=== PATIENT | male | born 1995 | race Caucasian/White ===

== ENCOUNTER 2016-11-16 06:16 | Day surgery (SDC) | payer OTHER ==
[2016-10-21 14:07] VITALS: BMI 22.6
[2016-11-16] MEDS ORDERED: ROPIVACAINE HCL 0.5% 30ML VIAL ONE (09:41)
[2016-11-16] MEDS ORDERED: MIDAZOLAM HCL 2 MG/2 ML SINGLE DOSE VIAL ONE ×2 (09:42)
[2016-11-16] MEDS ORDERED: PROPOFOL 20 ML ONE ×2 (10:54)
[2016-11-16] MEDS ORDERED: ceFAZolin SODIUM 1 GM VIAL ONE ×2 (11:09→14:21)
[2016-11-16] MEDS ORDERED: ceFAZolin SODIUM 1 GM VIAL IVPB ONE (11:10)
[2016-11-16] MEDS ORDERED: DEXAMETHASONE SOD PHOSPHATE 4 MG/1 ML VIAL ONE (11:12)
--- NOTE | 2016-11-16 12:31 | HP ---
[facility]ellite [facility] - Chief Complaint Chief Complaint: right knee pain/instability - Past Medical History Allergies/Adverse Reactions: Allergies Allergy/AdvReac Type Severity Reaction Status Date / Time No Known Drug Allergies Allergy Verified 11/16/16 08:45 pollen extracts Allergy Verified 11/16/16 08:45 - Current Medications Current Medications: Home Medications Medication Instructions Recorded Oxycodone HCl/Acetaminophen 1 - 2 tab PO Q6H #40 tab MDD 8 11/16/16 [Percocet 5-325 mg Tablet -] Satellite Physical Exam - Physical Examination Vital Signs: Vital Signs Period Temp Pulse Resp BP Sys/Blackmon Pulse Ox Last 24 Hr 97.5 F 64 20 120/73 99 General Appearance: Well Nourished, Well Developed, Alert & Oriented x3 ENT: Clear Lung: Normal air movement Heart: Regular rate & rhythm Extremities: Other (right knee- + swelling, + ttp, + lizeth, + ant draw, + pivot, nvi MRI + acl rupture) Neurological: Intact, Alert, Oriented Satellite Impression/Plan - Impression/Plan Impression: right knee internal derangement Operative Procedure: right knee arthroscopy with ACL reconstruction using btb autograft Date to be Performed: 11/16/16
--- NOTE | 2016-11-16 12:32 | OP ---
Operative Note - Note: Operative Date: 11/16/16 ([facility]) Pre-Operative Diagnosis: right knee acl rupture Operation: right knee arthroscopy with ACL reconstruction using BTB autograft Post-Operative Diagnosis: Same as Pre-op Surgeon: Pravin Victoria Manager Process Excellence: Rohit Wahl) Anesthesiologist/NURSE PRACTITIONER [employer]ICIANS ASSISTANT: Karie Polo Anesthesia: General, Local Specimens Removed: shavings Estimated Blood Loss (mls): 5 (tourniquet) Operative Report Dictated: Yes
[2016-11-16] MEDS ORDERED: MEPERIDINE HCL CARPU-JECT 25 MG/1 ML DISP.SYRIN ONE (12:35)
--- NOTE | 2016-11-16 12:37 | SPEC ---
DATE OF OPERATION: 11/16/2016 PREOPERATIVE DIAGNOSIS: Right anterior cruciate ligament tear. POSTOPERATIVE DIAGNOSIS: Right anterior cruciate ligament tear. PROCEDURE: Right anterior cruciate ligament reconstruction with bone patellar bone autograft harvesting. SURGICAL ATTENDING: Pravin Victoria MD SURGICAL TECHNICIAN: Rohit Wahl MD FIG CAPRIFIER: LOLIS Hunter ANESTHESIA: LMA and regional. CLOSURE: Arthrex metallic interference screw fixation for graft, 0 Vicryl for tendon, paratenon is 2-0 Vicryl, subcutaneous is 2-0 Vicryl, and 3-0 Monocryl subcuticular with skin for skin glue. ESTIMATED BLOOD LOSS: Negligible. TOURNIQUET TIME: Less than an hour. COMPLICATIONS: None. CONDITION: To recovery room in stable condition. DESCRIPTION OF PROCEDURE: The patient was taken to the Operating Room on November 16, 2016. Adductor canal block as well as general anesthesia was administered by the anesthesiologist. IV Kefzol was given prophylactically prior to the case. A well-padded pneumatic tourniquet was placed on the right proximal thigh. The right lower extremity was prepped and draped in the usual sterile fashion. The leg was exsanguinated with an Esmarch bandage and the tourniquet was inflated to 275 mmHg. A 6.0 cm longitudinal incision centered over the patellar tendon was incised down to the level of the patellar tendon through the paratenon. Flaps were made below the paratenon from the mid-patella to tibial tubercle, and medially and laterally to expose the entire patellar tendon. The central 10 mm were harvested using a 10 mm double blade, 10 x 25 mm bone plugs were harvested at its ends using micro-oscillating saw. Two drill holes were placed through each plug, and through these drill holes No 2 Fiberwire traction sutures were applied. The graft was measured and contoured to fit snugly through a 10 mm sizer, and was placed on the back table on a sponge until needed later in the procedure. A rent in the patellar tendon was closed using No. 1 Vicryl interrupted suture. An L was made in the periosteum 1-cm medial to the tibial tubercle for later tibial tunnel placement. Next, the arthroscopic part of the procedure was performed. A superolateral portal was made using a No. 15 blade followed by a blunt trocar. The medial and lateral infrapatellars were made through the previously-made incision using a No. 15 blade followed by a blunt trocar. The scope was placed in the lateral infrapatellar portal and up into the suprapatellar pouch. The pouch was visualized to be clean. The medial and lateral gutters were visualized to be clean. The undersurface of the patella and trochlea were visualized to be intact. With valgus stress on the knee the medial compartment was entered. The medial meniscus was visualized and probed, and found to be intact. The medial femoral condyle was run and found to be intact, as was the medial tibial plateau. In the figure-four position the lateral compartment was entered. The lateral meniscus was visualized and probed, and found to be intact. The lateral femoral condyle was run and found to be intact, as was the lateral tibial plateau. At 90 degrees the ACL was visualized to be completely torn with a large stump anteriorly. This was debrided using the shaver. Next, a notchplasty was performed using a katty and ArthroCare device until the appropriate width and height of the notch was obtained, and the insertion site of the femoral tunnel was clearly seen from anteriorly. All particulate debris was removed using the shaver. Using a 10 mm retro-drill, a tunnel was drilled from the anterior, medial and proximal tibia into the knee just anterior to the PCL. All bone fragments and soft tissue around the tunnel were debrided using the shaver. With the knee flexed greater than 120 degrees, a Beath pin was placed through the AM portal, and drilled from the posterior aspect of the notch until it exiting the anterolateral distal thigh. This was over-reamed with a 10 mm flat low-profile reamer to the appropriate depth. All bone fragments were debrided using the shaver. Good posterior wall was clearly seen, but also insuring that the graft was posterior enough. Through the Beath pin was placed a shuttle suture, which was pulled until it exited the anterolateral distal thigh. The shuttle suture was then pulled down the tibial tunnel. The shuttle suture was used to shuttle the traction sutures and the graft from the anterior, medial and proximal tibia until it exited the anterolateral distal thigh. The graft was pulled up until it was snugly buried in the femoral tunnel. An Arthrex interference screw was placed between the femoral bone plug and the femoral tunnel, achieving excellent fixation. The knee was taken through a range of motion and found that the graft crossed nicely over the PCL and did not impinge on the notch from full extension to full flexion. With 20 degrees of flexion and posterior drawer being applied, an interference screw was placed between the tibial bone plug and the tibial tunnel of appropriate length, achieving excellent fixation. The knee was again taken through a range of motion and found to go from full extension and full flexion with excellent tension on the graft as it crossed the PCL, negative Amanda, negative pivot shift, negative anterior and posterior drawer, and no impingement on the notch. Traction sutures were removed. The donor site on the patella was filled with StimuBlast bone putty. The paratenon was closed using 2-0 Vicryl running suture, 2-0 for subcutaneous, and 3-0 Monocryl subcuticular with skin glue to the skin. Sterile pressure dressing followed by a knee immobilizer was applied. Tourniquet was deflated with a total tourniquet of time of approximately one hour. No complications. Marie MUNOZ/[id number]
[2016-11-16] MEDS ORDERED: oxyCODONE HCL 5 MG TABLET PO PRN (12:41)
[2016-11-16] MEDS ORDERED: ONDANSETRON 4 MG/2 ML VIAL IVPUSH PRN (12:41)
[2016-11-16] MEDS ORDERED: ACETAMINOPHEN 325 MG TABLET (FP) PO PRN (12:41)
[2016-11-16] MEDS ORDERED: MEPERIDINE HCL CARPU-JECT 25 MG/1 ML DISP.SYRIN IVPUSH PRN (12:42)
[2016-11-16] MEDS ORDERED: LACTATED RINGERS SOLUTION 1,000 ML IV SCH (12:45)
[2016-11-16] MEDS ORDERED: CEFAZOLIN (PRE-DOCKED) 50 ML IVPB ONE (13:00)
[2016-11-16] MEDS ORDERED: oxyCODONE HCL 5 MG TABLET ONE (14:09)
[2016-11-16 17:18] VITALS: BP 128/70; PULSE 68; TEMP 97.8
--- NOTE | 2016-11-17 16:30 | PATH ---
Surgical Pathology Report Patient Name: GERALD MORENO [facility]. Rec. #: [id number] /Age/Gender: 1995 (Age: 21) / M Account: [id number] Location: [facility] SURGICAL Taken: 11/16/2016 Received: 11/16/2016 Reported: 11/17/2016 Physicians: Pravin Victoria M.D. Specimen(s) Received SHAVINGS RIGHT KNEE Clinical History Right ACL tear Final Diagnosis KNEE, RIGHT, ARTHROSCOPIC SHAVING: FIBROCARTILAGE WITH MYXOID DEGENERATIVE CHANGES, ALONG WITH PORTIONS OF SYNOVIUM, BONE AND HYALINE CARTILAGE. Electronically Signed Hai Best M.D. Gross Description Received in formalin, labeled "right knee shavings," is a 4.2 x 3.8 x 0.5 cm. aggregate of frederick-yellow soft tissue fragments. A scheduling representative portion is submitted in one cassette. /11/16/2016 saudi11/16/2016
== END 2016-11-16 16:15 | disposition home or self-care (01) ==
LOC: JASU-SURG 06:16
PROVIDERS: ATTEND Orthopaedic Surgery
PROC: 0QUD07Z Supplement Right Patella with Autologous Tissue Substitute, Open Approach (ICD-10-PCS; 2016-11-16)
PROC: 0QBD0ZZ Excision of Right Patella, Open Approach (ICD-10-PCS; 2016-11-16)
PROC: 0MQN4ZZ Repair Right Knee Bursa and Ligament, Percutaneous Endoscopic Approach (ICD-10-PCS; principal; 2016-11-16 10:30)
DX: S83.511A Sprain of anterior cruciate ligament of right knee, initial encounter (principal); X58.XXXA Exposure to other specified factors, initial encounter; Y93.9 Activity, unspecified; Y92.9 Unspecified place or not applicable; Y99.9 Unspecified external cause status
CPT/HCPCS: 88304-TC; 94760; 97116-GP

== ENCOUNTER 2023-01-24 09:22 | Emergency (ER) | payer BC, OTHER ==
[2023-01-24 09:41] VITALS: BP 113/75; PULSE 82; RESP 20; TEMP 99.5; BMI 26.6
[2023-01-24] MEDS: ALBUTEROL SO4 2.5/IPRATROPIUM 0.5 INH SOL 3 ML VIAL.NEB. NEB SCH ×4 (10:30→11:00)
[2023-01-24] MEDS ORDERED: ALBUTEROL SO4 2.5/IPRATROPIUM 0.5 INH SOL 3 ML VIAL.NEB. NEB ONE (10:39)
[2023-01-24] MEDS ORDERED: SODIUM CHLORIDE 0.9% 500 ML INFUS.BAG IV ONE (10:48)
[2023-01-24 11:21] LABS: BASO % 0.2 % (0-2.0); EOS % 2.9 % (0-4.5); HEMATOCRIT 43.8 % (35.4-49); HEMOGLOBIN 14.9 GM/dL (11.7-16.9); LYMPH % 8.6 % (8-40); MCH 30.8 pg (25.7-33.7); MCHC 33.9 g/dl (32.0-35.9); MEAN CELL VOLUME 90.9 fl (80-96); MEAN PLT VOLUME 9.9 fl (7.5-11.1); MONO % 7.6 % (3.8-10.2); NEUT % 80.7 % (42.8-82.8); PLATELET COUNT 226 10^3/uL (134-434); RBC 4.82 M/mm3 (4.00-5.60); RDW 12.7 % (11.9-15.9); WHITE BLOOD COUNT 9.7 K/mm3 (4.0-10.0)
[2023-01-24 11:47] LABS: CALCIUM 9.3 mg/dL (8.5-10.1)
[2023-01-24 11:48] LABS: ALBUMIN 4.1 g/dl (3.4-5.0); BLOOD UREA NITROGEN 9.6 mg/dL (7-18)
[2023-01-24 11:51] LABS: CREATININE 0.9 mg/dL (0.55-1.3)
[2023-01-24 11:53] LABS: BILIRUBIN,TOTAL 0.6 mg/dL (0.2-1)
[2023-01-24] MEDS ORDERED: guaiFENesin 200 MG/10 ML 10 ML UNIT-DOSE CUPS PO ONE (12:05)
[2023-01-24] MEDS ORDERED: guaiFENesin/D-METHORPHAN HB 10 ML UNIT-DOSE CUPS ONE (12:54)
== END 2023-01-24 13:57 | disposition home or self-care (01) ==
LOC: JERFT 09:22
PROC: 3E0F7GC Introduction of Other Therapeutic Substance into Respiratory Tract, Via Natural or Artificial Opening (ICD-10-PCS; principal; 2023-01-24)
DX: R06.02 Shortness of breath (principal); R09.81 Nasal congestion; J02.9 Acute pharyngitis, unspecified; R07.0 Pain in throat; R05.9 Cough, unspecified; R59.0 Localized enlarged lymph nodes; Z20.822 Contact with and (suspected) exposure to COVID-19
CPT/HCPCS: 0241U-QW; 36415; 70360-TC-FY; 70491-TC; 71046-TC-FY; 80053; 85025; 87651; 99285-25; Q9967